=== PATIENT | male | born 1970 | race Caucasian/White ===

== ENCOUNTER 2019-11-09 21:23 | Inpatient (IN) | payer OTHER ==
[~2019-11-09] VITALS: Ht 175.3 cm; Wt 134.3 kg
[2019-11-09] MEDS ORDERED: SODIUM CHLORIDE 0.9% 1,000 ML IV ONE (22:15)
[2019-11-09] MEDS ORDERED: LORAZEPAM 2MG/ML CPJ IV ONE (23:00)
[2019-11-09] MEDS ORDERED: PANTOPRAZOLE SODIUM 40 MG/VIAL IV ONE (23:00)
[2019-11-09] MEDS ORDERED: ONDANSETRON HCL 4MG/2ML INJ IV ONE (23:00)
[2019-11-09 23:21] LABS: *BARBITURATES SCREEN URINE NEGATIVE (NEGATIVE)
[2019-11-09 23:22] LABS: *AMPHETAMINES SCREEN URINE NEGATIVE (NEGATIVE); *BENZODIAZEPINES SCREEN URINE NEGATIVE (NEGATIVE); *COCAINE SCREEN URINE NEGATIVE (NEGATIVE); CANNABINOID URINE SCREEN NEGATIVE (NEGATIVE); METHADONE URINE SCREEN NEGATIVE (NEGATIVE); OPIATES URINE SCREEN NEGATIVE (NEGATIVE); PHENCYCLIDINE URINE SCREEN NEGATIVE (NEGATIVE)
[2019-11-09] MEDS ORDERED: ONDANSETRON HCL 4MG/2ML INJ IV NR (23:30)
[2019-11-09 23:43] LABS: BASOPHILS % 0.4 % (0.0-2.0); EOSINOPHILS % 1.6 % (0.0-5.0); HEMATOCRIT. 40.8 % (42.0-52.0); HEMOGLOBIN. 13.7 g/dL (14.0-18.0); LYMPHOCYTES % 15.2 % (20.0-50.0); MEAN CORPUSCULAR VOLUME 86.2 fL (80.0-94.0); MONOCYTES % 4.2 % (2.0-8.0); NEUTROPHILS % 78.6 % (40.0-76.0); PLATELET 343 x1000/uL (130-400); RED BLOOD CELL COUNT 4.73 mill/uL (4.7-6.1); RED CELL DISTRIBUTION WIDTH 14.8 % (11.6-14.6)
[2019-11-09 23:51] LABS: CHLORIDE 109 mEq/L (98-107)
[2019-11-09 23:52] LABS: PROTHROMBIN TIME 10.7 sec (9.6-11.0)
[2019-11-09 23:56] LABS: ETHANOL BLOOD 164 mg/dL
[2019-11-10] MEDS ORDERED: KCL 10MEQ/50ML PREMIX 50 ML IV NR (00:30)
[2019-11-10] MEDS ORDERED: POTASSIUM CHLORIDE 20MEQ TABLET SR PO NR (00:30)
[2019-11-10 03:15] VITALS: BP 140/78
[2019-11-10] MEDS: MORPHINE SULFATE 2 MG/ML CPJ (NOT FOR IM USE) IV PRN ×2 (03:28→08:13)
[2019-11-10] MEDS ORDERED: OXYC-515 PO (04:29)
[2019-11-10] MEDS ORDERED: CARI250T PO (04:29)
[2019-11-10] MEDS ORDERED: DIPHENHYDRAMINE 50MG/ML VIAL IV PRN (05:15)
[2019-11-10] MEDS ORDERED: CYCL5TAB PO (05:19)
[2019-11-10 08:00] VITALS: BP 140/73
[2019-11-10] MEDS ORDERED: PNEUMOCOCCAL 23-VAL P-SAC VAC 0.5 ML IM ONE (08:00)
[2019-11-10] MEDS ORDERED: ONDANSETRON HCL 4MG/2ML INJ IV PRN (09:15)
[2019-11-10] MEDS ORDERED: LORAZEPAM 2MG/ML CPJ IV PRN (09:15)
[2019-11-10] MEDS ORDERED: FOLIC ACID 1 MG, THIAMINE HCL 100 MG, MVI, ADULT NO.1 10 ML in DEXTROSE 5% WATER 1,000 ML IV ONE ×4 (11:00)
[2019-11-10 12:00] VITALS: BP 151/68
[2019-11-10] MEDS: HYDROCODONE/ACETAMINOPHEN 10/325MG TABLET PO PRN ×2 (13:14→17:58)
[2019-11-10] MEDS: AMLODIPINE 10MG TABLET PO SCH (14:57)
[2019-11-10 16:00] VITALS: BP 141/53
[2019-11-10 20:00] VITALS: BP 151/66
[2019-11-10] MEDS: KETOROLAC 30MG/ML VIAL IV PRN (21:15)
[2019-11-11] VITALS: BP 157/77
[2019-11-11] MEDS: HYDROCODONE/ACETAMINOPHEN 10/325MG TABLET PO PRN ×4 (01:00→23:37)
[2019-11-11] MEDS: KETOROLAC 30MG/ML VIAL IV PRN ×4 (03:17→22:04)
[2019-11-11 08:00] VITALS: BP 152/74
[2019-11-11] MEDS: AMLODIPINE 10MG TABLET PO SCH (09:28)
[2019-11-11 12:00] VITALS: BP 139/74
[2019-11-11 15:49] VITALS: BP 153/79
[2019-11-11 18:06] LABS: CHLORIDE 108 mEq/L (98-107)
[2019-11-11 18:07] LABS: BASOPHILS % 0.5 % (0.0-2.0); EOSINOPHILS % 2.7 % (0.0-5.0); HEMATOCRIT. 41.2 % (42.0-52.0); HEMOGLOBIN. 13.7 g/dL (14.0-18.0); LYMPHOCYTES % 25.4 % (20.0-50.0); MEAN PLATELET VOLUME 8.2 fl (7.4-10.4); MONOCYTES % 5.4 % (2.0-8.0); PLATELET 288 x1000/uL (130-400); RED BLOOD CELL COUNT 4.74 mill/uL (4.7-6.1); RED CELL DISTRIBUTION WIDTH 15.1 % (11.6-14.6)
[2019-11-11 20:00] VITALS: BP 156/76
[2019-11-12] VITALS: BP 117/66
[2019-11-12 04:00] VITALS: BP 134/61
[2019-11-12] MEDS: KETOROLAC 30MG/ML VIAL IV PRN ×3 (04:13→18:00)
[2019-11-12 08:00] VITALS: BP 140/70
[2019-11-12] MEDS: HYDROCODONE/ACETAMINOPHEN 10/325MG TABLET PO PRN ×2 (08:02→15:52)
[2019-11-12] MEDS: AMLODIPINE 10MG TABLET PO SCH (08:03)
[2019-11-12 12:00] VITALS: BP 165/80
[2019-11-12 15:49] VITALS: BP 152/91
[2019-11-12] MEDS ORDERED: LOSA100T32 MT (16:23)
[2019-11-12 18:22] VITALS: BP 152/91
== END 2019-11-12 19:50 | disposition home or self-care (01) | DRG 896 ==
LOC: ER 21:23 → 8WST 11-10 00:24 → ENRESERV 11-10 02:18
PROVIDERS: ADMIT Internal Medicine; ATTEND Internal Medicine
DX: F10.129 Alcohol abuse with intoxication, unspecified (principal); G93.41 Metabolic encephalopathy; Z68.41 Body mass index [BMI] 40.0-44.9, adult; Y90.6 Blood alcohol level of 120-199 mg/100 ml; G90.8 Other disorders of autonomic nervous system; E87.8 Other disorders of electrolyte and fluid balance, not elsewhere classified; E87.6 Hypokalemia; I10 Essential (primary) hypertension; E66.9 Obesity, unspecified; G89.29 Other chronic pain; M54.9 Dorsalgia, unspecified; S06.0X0A Concussion without loss of consciousness, initial encounter; Z71.3 Dietary counseling and surveillance; Z79.899 Other long term (current) drug therapy
CPT/HCPCS: 36415; 70486; 70551; 71045; 80048; 80053; 80305; 80320; 83735; 84132; 85025; 90732; 95816; 97162; 99291; C9113; J1885; J2060; J2270; J2405; J3411; J3480; J3490; J7030; J7070; G0480